=== PATIENT | female | born 1990 | race African-American/Black ===

== ENCOUNTER 2016-05-30 09:48 | Emergency (ER) | payer OTHER ==
[~2016-05-30] VITALS: Ht 172.7 cm; Wt 72.6 kg
[~2016-05-30 09:48] MED LIST: PERCOCET 5-3251 EACH PO; PRENATAL TABLE1 EAC2 PO; VITAFOL-ONE CA1 EACH
--- NOTE | 2016-05-30 09:59 | ED SYNCOPE COMPLAINT ---
History of Present Illness General Chief Complaint: Female Urogenital Problems Stated Complaint: BIBA FOR ? Source: patient, EMS Exam Limitations: no limitations Vital Signs & Intake/Output Vital Signs & Intake/Output Vital Signs Date Time Temp Pulse Resp B/P Pulse O2 O2 Flow FiO2 Ox Delivery Rate 05/30 1620 99.3 72 17 115/60 100 Room Air ED Intake and Output 05/31 0000 05/30 1200 Intake Total 1000 Output Total Balance 1000 Intake, IV 1000 Patient 160 lb Weight Allergies Coded Allergies: No Known Allergies (10/25/15) Reconcile Medications No Known Home Medications Triage Note: 26 Triage Nurses Notes Reviewed? yes Timing: single episode today Precipitating Factors: none : Yes Patient currently breastfeeds: No HPI: 26-year-old female comes into emergency room for further evaluation of feeling lightheaded and dizzy and almost passing out this morning. Patient reports that she is approximately 6 weeks . Patient reports that [facility] went to [facility] yesterday and she took the pill last night around 10:00. Within an hour she started to experience some cramping and some heavy bleeding and had some passage of clots. Patient reports that the symptoms persisted throughout the night and this morning while she was in the bathroom she had another bolus of large clots passing and she felt lightheaded and dizzy like she was going to pass out. Some associated sharp cramping pain. Denies any other associated symptoms. (OLGA CHEEMA) Past History Travel History Traveled to [place] past 21 day No Medical History Any Pertinent Medical History? see below for history Neurological: NONE EENT: NONE Cardiovascular: NONE Respiratory: NONE Gastrointestinal: NONE Renal: NONE Musculoskeletal: NONE Psychiatric: bipolar disease Endocrine: NONE Blood Disorders: NONE Cancer(s): NONE HUMAN RESOURCES DEPARTMENT SUPERVISOR/Reproductive: LEEP PROCEDURE Surgical History Surgical History: N Psychosocial History What is your primary language Angolan Tobacco Use: Never used Family History Hx Contributory? No (OLGA CHEEMA) Review of Systems Review of Systems Constitutional: Reports: no symptoms. EENTM: Reports: no symptoms. Respiratory: Reports: no symptoms. Cardiovascular: Reports: no symptoms. GI: Reports: see HPI. Genitourinary: Reports: see HPI. Musculoskeletal: Reports: no symptoms. Skin: Reports: no symptoms. Neurological/Psychological: Reports: no symptoms. All Other Systems: Reviewed and Negative (OLGA CHEEMA) Physical Exam Physical Exam General Appearance: well developed/nourished, no apparent distress, alert Head: atraumatic, normal appearance Eyes: Bilateral: normal appearance, EOMI. Ears, Nose, Throat: normal pharynx, normal ENT inspection Neck: normal inspection Respiratory: normal breath sounds, no respiratory distress Cardiovascular: regular rate/rhythm Gastrointestinal: normal bowel sounds, soft, tenderness Back: normal inspection Psychiatric: awake, alert, oriented x 3 Cranial Nerves: normal hearing, normal speech, PERRL Coordination/Gait: normal gait Motor/Sensory: no motor/sensory deficits Skin: intact, normal color Core Measures ACS in differential dx? No CVA/TIA Diagnosis: No Severe Sepsis Present: No Septic Shock Present: No (OLGA CHEEMA) Progress Differential Diagnosis: AMI, aortic dissection, drug induced syncope, vasodepressor syncope, ventricular tach/fib, ACUTE BLOOD LOSS, ,, retained products Plan of Care: Orders Procedure Date/time Status Telemetry/Marine Water Tender 05/30 1144 Active Add-on Test (ER Only) 05/30 1135 Active PARTIAL THROMBOPLASTIN TIME 05/30 1020 Complete PROTHROMBIN TIME 05/30 1020 Complete TYPE & SCREEN (NOT X-MATCH) 05/30 1020 Active HUMAN BETA HCG TITRE 05/30 0954 Complete COMPREHENSIVE METABOLIC PANEL 05/30 0954 Complete CBC WITHOUT DIFFERENTIAL 05/30 0954 Complete EKG 05/30 0954 Active Laboratory Tests 05/30/16 1020: Anion Gap 11, Estimated GFR > 60, BUN/Creatinine Ratio 7.1, Glucose 99, Calcium 8.2 L, Total Bilirubin 0.5, AST 12 L, ALT 26, Alkaline Phosphatase 50, Total Protein 5.5 L, Albumin 3.1 L, Globulin 2.4, Albumin/Globulin Ratio 1.3, Beta HCG, Quant 78588.0, PT 12.3, INR 1.17, APTT 24 L, CBC w Diff NO MAN DIFF REQ, RBC 3.11 L, MCV 89.2, MCH 30.3, RDW 13.8, MPV 7.9, Gran % 73.9, Lymphocytes % 18.3 L, Monocytes % 5.6, Eosinophils % 1.6, Basophils % 0.6, Absolute Granulocytes 7.1 H, Absolute Lymphocytes 1.7, Absolute Monocytes 0.5, Absolute Eosinophils 0.1, Absolute Basophils 0.1, PUBS MCHC 34.0 Diagnostic Imaging: Viewed by Me: Ultrasound. Discussed w/RAD: Ultrasound. Radiology Impression: SERVICE DATE: 05/30/16 EXAM TYPE: RAD - XRY-CHEST XRAY, PA AND LATERAL EXAMINATION: XR CHEST CLINICAL INFORMATION: Altered mental status COMPARISON: 08/25/2015 and prior TECHNIQUE: AP and 2 lateral views of the chest FINDINGS: Lordotic positioning on the AP radiograph with low lung volumes. Persistent left heart prominence. Persistent vascular ectasia. No pulmonary edema. A persistent platelike atelectasis at the right base. No lobar pneumonia effusion or pneumothorax. Possible ankylosis of the dorsal spine. Nonobstructive gas pattern. IMPRESSION: No acute cardiopulmonary process detected. DICTATED BY: BLAYNE TALBERT MD DATE/TIME DICTATED:05/30/161406 Initial ED EKG: normal intervals, normal p-waves, normal QRS complex, normal sinus rhythm, rate (67) Comments: 05/30/2016 2:50:37 PM PT REPORTS SHE RECIEVED A RHOGMAN SHOT THIS PAST TUESDAY DUE TO HER BLOOD TYPE [facility]. Patient clinically looks well. Patient feels much better after IV fluids. Patient is hemodynamically stable. She is able to ambulate with no difficulty. Patient declined pelvic exam multiple times. I explained to her the importance of looking at the cervix to make sure there is no hemorrhaging. Patient reports that the bleeding has significantly decreased at this time she is feeling much better and wants to go home. (GRACIELA HERNANDEZ,OLGA) Departure Departure Disposition: HOME OR SELF CARE Condition: Stable Clinical Impression Primary Impression: Referrals: KARSTEN ARORA,DIOR Maria (PCP/Family) Additional Instructions: Follow[facility]up with [facility] within 72 hours to have repeat ultrasound and repeat beta hCG titer. If you have increased bleeding, increased weakness, feeling a going to passout please return to the emergency room immediately for further evaluation. At this time you have declined a pelvic exam. Please go over all results of today's visit with your primary care doctor. Contact your primary care doctor to let them know you were here in the emergency room. There may be nonspecific findings which may not be related to your visit today here in the emergency room but may require further evaluation and chronic monitoring by your primary care doctor. If you had a laceration today the chance of foreign body always remains. You should follow-up with your primary care doctor for recheck in 3-5 days for a wound check. If you had an x-ray done there is a chance that a fracture could have been missed on initial read and you should follow-up with your primary care doctor for repeat x-rays if symptoms persist. If your blood pressure was elevated here in the emergency room please have rechecked by her primary care doctor within the next 48 hours by your primary care doctor. If you were prescribed a narcotic here in the emergency room or any type of controlled substances you're not allowed to drive while taking this medication or operate any type of heavy machinery. Narcotics can make you feel lightheaded dizziness nausea and can cause constipation. You may need to product picker a stool softener. Thank you for choosing [facility] emergency room. Please return to the emergency room immediately if you have any other concerns worsening of symptoms. Departure Forms: Customer Survey General Discharge Information Prescriptions: Current Visit Scripts No Known Home Medications (OLGA CHEEMA) PA/REFINING SUPERVISOR Co-Sign Statement Statement: ED Attending supervision documentation- [X] I saw and evaluated the patient. I have also reviewed all the pertinent lab results and diagnostic results. I agree with the findings and the plan of care as documented in the PA's/REFINING SUPERVISOR's documentation. [X] I have reviewed the ED Record and agree with the PA's/REFINING SUPERVISOR's documentation. [] Additions or exceptions (if any) to the PAs/REFINING SUPERVISOR's note and plan are summarized below: [] (JAMEY ARORA,YOLIS)
[2016-05-30 11:07] LABS: ABSOLUTE BASOPHIL COUNT 0.1 /CUMM (0.0-0.2); ABSOLUTE EOSINOPHIL COUNT 0.1 /CUMM (0.0-0.7); ABSOLUTE GRANULOCYTE CT 7.1 /CUMM (1.4-6.5); ABSOLUTE LYMPH COUNT 1.7 /CUMM (1.2-3.4); ABSOLUTE MONOCYTE COUNT 0.5 /CUMM (0.10-0.60); BASOPHIL % 0.6 % (0.0-2.0); EOSINOPHIL % 1.6 % (0-5); GRANULOCYTE % 73.9 % (42.2-75.2); HEMATOCRIT 27.7 % (37-47); MEAN CORPUSCULAR HGB 30.3 PG (27.0-31.0); MEAN CORPUSCULAR VOLUME 89.2 FL (81.0-99.0); MEAN PLATELET VOLUME 7.9 FL (7.4-10.4); PLATELET COUNT 199 /CUMM (130-400); RBC DISTRIBUTION WIDTH 13.8 % (11.5-14.5); RED BLOOD CELL CT 3.11 /CUMM (4.20-5.40); WHITE BLOOD CELL COUNT 9.5 /CUMM (4.8-10.8)
[2016-05-30 11:52] LABS: PT 12.3 SEC (9.4-12.5); PTT 24 SEC (25-37)
--- NOTE | 2016-05-30 14:50 | ULTRASOUND REPORT ---
EXAMINATION: US TRANSVAGINAL CLINICAL INFORMATION: Abdominal pain. Vaginal bleeding COMPARISON: None. TECHNIQUE: Transvaginal sonography of the pelvis. This is a limited exam FINDINGS: The uterus is normal in size measuring approximately 11.2 cm from fundus to cervix and 5.8 x 6.3 cm in AP and transverse diameter. Cervical length is 3.4 cm. There is a mildly thickened and poorly defined endometrium with endometrial echo complex thickness between 0.9 and 1.2 cm. There is a small amount of fluid and probable hemorrhagic products in the endometrial cavity. No discrete fluid collection or defined intrauterine gestational sac is seen in the endometrial cavity at this time. No uterine mass is defined. The ovaries are not identified. No adnexal mass, free fluid or abnormal fluid collection is documented IMPRESSION: Normal-sized uterus with mildly thickened and echogenic endometrial complex and a small amount of fluid and probable hemorrhagic products in the endometrial cavity. No defined mass or intrauterine gestational sac is seen at this time. Ovaries and adnexal structures are not delineated on this examination. No mass, free fluid, or fluid collection is defined in the adnexal regions. Nonvisualization of ovaries and adnexal structures, with no visible intrauterine gestational sac, would make it difficult to exclude ectopic gestation in the appropriate clinical setting. Correlate with patient's clinical history and test results
[2016-05-30 16:20] VITALS: BP 115/60
== END 2016-05-30 16:33 ==
LOC: ERH 09:48
PROVIDERS: Physician Assistant Medical
DX: O04.89 (Induced) termination of pregnancy with other complications (principal); R42 Dizziness and giddiness; R10.9 Unspecified abdominal pain
CPT/HCPCS: 86920; 86922; 93005; 93010; 96361; 96374; J2405

== ENCOUNTER 2017-09-26 19:41 | Emergency (ER) | payer OTHER ==
[~2017-09-26] VITALS: Ht 172.7 cm; Wt 70.3 kg
--- NOTE | 2017-09-26 22:20 | ED GENERAL ADULT ---
History of Present Illness General Chief Complaint: Suture Removal/Wound Recheck Stated Complaint: "WOUND CHECK FROM SURGERY" Source: patient Exam Limitations: no limitations Vital Signs & Intake/Output Vital Signs & Intake/Output Vital Signs Date Time Temp Pulse Resp B/P B/P Pulse O2 O2 Flow FiO2 Mean Ox Delivery Rate 09/26 2226 97.8 72 18 134/88 97 Room Air Room Air 09/26 1950 98.0 74 16 142/94 97 Room Air ED Intake and Output 09/27 0000 09/26 1200 Intake Total Output Total Balance Patient 155 lb Weight Weight Reported by Patient Measurement Method Allergies Coded Allergies: No Known Allergies (10/25/15) Reconcile Medications Naproxen (Naprosyn) 500 MG TABLET 1 TAB PO BID PRN pain Oxycodone HCl/Acetaminophen (Percocet 5-325 MG Tablet) 5 MG-325 MG TABLET 1 TAB PO EVERY 6HRS- NEEDED PRN pain Oxycodone HCl/Acetaminophen (Percocet 5-325 MG Tablet) 5 MG-325 MG TABLET 1 TAB PO EVERY 6HRS- NEEDED PRN pain Triage Note: PRESENTS TO ED FOR EVALUATION OF SURGICAL SITE. SHE REPORTS PAIN AND BURNING LIKE SENSATION ON THE LEFT LOWER ABDOMINAL SURGICAL SITE. THE UMBILICAL SITE IS NOT PAINFULL SHE REPORTED. REQUESTING PAIN MANAGEMENT FOR HOME. Triage Nurses Notes Reviewed? yes Onset: Gradual Duration: day(s): Timing: constant : No Patient currently breastfeeds: No HPI: 27 y/o female with h/o recent right tubal ectopic , 5 days post op from laproscopic right salpingectomy (performed in [place] while on vacation) presenting with worsening post op pain to the LLQ over the past 2-3 days. Pt has surgical site to both the LLQ and RLQ, was discharged home with percocet for pain. Post op pain had been improving, but then a few days ago develop nasal congestion, rhonorrhea, and non-productive cough. Reports abdominal pain began worsening when she developed the cough. Pain was well controlled with percocet, but has since ran out. Has been using ibuprofen without relief. Denies fevers, NVD, dysuria. Endorses white vaginal discharge that began a few days ago, no odor, vaginal bleeding, dysuria, or itching. (Socorro HERNANDEZ,Dahlia) Past History Travel History Traveled to [place] past 21 day No Medical History Any Pertinent Medical History? see below for history Neurological: NONE EENT: NONE Cardiovascular: NONE Respiratory: NONE Gastrointestinal: NONE Renal: NONE Musculoskeletal: NONE Psychiatric: bipolar disease Endocrine: NONE Blood Disorders: NONE Cancer(s): NONE DIRECTOR PROCESS ENGINEERING/Reproductive: LEEP PROCEDURE, ectopic Surgical History Surgical History: right salpingectomy Psychosocial History What is your primary language [place] Tobacco Use: Never used Family History Hx Contributory? No (Dahlia James) Review of Systems Review of Systems Constitutional: Reports: no symptoms. EENTM: Reports: nasal congestion. Denies: ear pain, throat pain. Respiratory: Reports: cough. Denies: short of breath, sputum production, wheezing. Cardiovascular: Reports: no symptoms. GI: Reports: abdominal pain. Denies: diarrhea, nausea, vomiting. Genitourinary: Reports: discharge. Denies: dysuria, frequency, hematuria, urgency. Musculoskeletal: Reports: no symptoms. Skin: Reports: no symptoms. Neurological/Psychological: Reports: no symptoms. Hematologic/Endocrine: Reports: no symptoms. Immunologic/Allergic: Reports: no symptoms. (Dahlia James) Physical Exam Physical Exam General Appearance: well developed/nourished, no apparent distress, alert, awake , comfortable Head: atraumatic, normal appearance Eyes: Bilateral: normal appearance. Ears, Nose, Throat: normal ENT inspection Neck: normal inspection Respiratory: normal breath sounds, lungs clear Cardiovascular: regular rate/rhythm Gastrointestinal: soft, Mild TTP over bilateral surgical sites. Sites are healing well, no bleeding, purulent drainage, or erythema. Back: normal inspection Extremities: normal inspection Neurologic/Psych: awake, alert, oriented x 3, normal gait, normal mood/affect Skin: intact, normal color, warm/dry Comments: On pelvic exam there are white plaques that easily scrape off the vaginal mucosa. No foul odor or purulent discharge. No bleeding. Cervical os is closed. No adnexal masses or TTP. Core Measures ACS in differential dx? No CVA/TIA Diagnosis: No Sepsis Present: No Sepsis Focused Exam Completed? No (Dahlia James) Progress Differential Diagnoses I considered the following diagnoses in my evaluation of the patient: [Likely post op pain worsening in the setting of cough from URI, low concern for acute abdomen. Also with yeast vaginitis on exam, low concern for BV or STI.] Plan of Care: Orders Procedure Date/time Status URINE 09/26 2129 Complete URINALYSIS 09/26 2129 Complete Laboratory Tests 09/26/172141: Urine Color YEL, Urine Clarity CLEAR, Urine pH 6.5, Ur Specific [place] 1.020, Urine Protein NEG, Urine Ketones NEG, Urine Nitrite NEG, Urine Bilirubin NEG, Urine Urobilinogen 0.2, Ur Leukocyte Esterase NEG, Ur Microscopic EXAM NOT REQUIRED, Urine Hemoglobin NEG, Urine Glucose NEG, Urine Test POSITIVE Refilled rx percocet for post op pain, which is likely worsening in the setting of coughing from URI. Low concern for PNA as pt has been afebrile with no sputum. No indication for CXR at this time. Exam consistent with yeast vaginitis , given single dose fluconazole in ED. UA not concerning for infection. Urine preg positive, but likely from hCG that has not fully down trended yet. Pt is visiting from [place] for the next 3 months, given f/u information to establish care with DIRECTOR PROCESS ENGINEERING in [place]. Given strict return precautions. Discussed with Dr. Richard. Initial ED EKG: none (Dahlia James) Departure Departure Disposition: HOME OR SELF CARE Condition: Stable Clinical Impression Primary Impression: Post-op pain Secondary Impressions: URI (upper respiratory infection), Yeast vaginitis Referrals: Samson Carpenter MD Patient Has No Primary Care Dr (PCP/Family) Additional Instructions: Take ibuprofen and percocet as needed for pain. Follow up with OBGYN for re- evaluation. Return to the emergency department for any new or worsening symptoms. Departure Forms: Customer Survey General Discharge Information Prescriptions: Current Visit Scripts Naproxen (Naprosyn) 1 TAB PO BID PRN pain #60 TAB Oxycodone HCl/Acetaminophen (Percocet 5-325 MG Tablet) 1 TAB PO EVERY 6HRS- NEEDED PRN pain #12 TAB Oxycodone HCl/Acetaminophen (Percocet 5-325 MG Tablet) 1 TAB PO EVERY 6HRS- NEEDED PRN pain #12 TAB (Dhalia James) PA/TOOL FILER HAND Co-Sign Statement Statement: ED Attending supervision documentation- [] I saw and evaluated the patient. I have also reviewed all the pertinent lab results and diagnostic results. I agree with the findings and the plan of care as documented in the PA's/TOOL FILER HAND's documentation. [X] I have reviewed the ED Record and agree with the PA's/TOOL FILER HAND's documentation. [] Additions or exceptions (if any) to the PAs/TOOL FILER HAND's note and plan are summarized below: [] (Jose Manuel ARORA,Davian Bro) Critical Care Note Critical Care Note Critical Care Time: non-applicable ([place] HERNANDEZ,Dahlia)
[2017-09-26] MEDS ORDERED: NAPROSYN500 M1 PO (22:22)
[2017-09-26] MEDS ORDERED: PERCOCET 5-3251 EACH PO ×2 (22:22→22:25)
[2017-09-26 22:27] VITALS: BP 134/88
== END 2017-09-26 22:27 ==
LOC: ERH 19:41
DX: G89.18 Other acute postprocedural pain (principal); J06.9 Acute upper respiratory infection, unspecified; B37.3 Candidiasis of vulva and vagina
CPT/HCPCS: 81003; 81025; 96372; J1885